=== PATIENT | female | born 1985 | race Caucasian/White ===

== ENCOUNTER → 2018-08-17 | Outpatient (CLI) | payer OTHER ==
[~2018-08-17] MED LIST: LIDOCAINE 1% MDV 20ML VIAL As Ordered
== END ==
LOC: M RADPRO 12:29
DX: R22.41 Localized swelling, mass and lump, right lower limb (principal); Z79.899 Other long term (current) drug therapy
CPT/HCPCS: 20610

== ENCOUNTER 2018-08-18 08:25 | Emergency (ER) | payer OTHER ==
[2018-08-18] MEDS: ANEXSIA, NORCO 7.5MG/325MG TABLET(HYDROCODONE/APAP) PO (09:42)
[2018-08-18] MEDS: METHOCARBAMOL 500 MG TAB PO (10:16)
[2018-08-18] MEDS: NAPROXEN 250 MG TAB PO (10:55)
== END 2018-08-18 12:00 | disposition home or self-care (01) ==
LOC: M ED 08:25
DX: M79.622 Pain in left upper arm (principal); M62.838 Other muscle spasm
CPT/HCPCS: 73030

== ENCOUNTER → 2019-06-22 | Outpatient (REF) | payer OTHER ==
[~2019-06-22] MED LIST changes: +LEVONOR/ETHI; -LIDOCAINE 1% MDV 20ML VIAL As Ordered; +NAPR-885 PO; +ROBA500T PO; +VOLT1GEL15 TOP
[2019-06-22 19:01] LABS: HEMATOCRIT 38.2 % (36.0-47.0); MEAN CORPUSCULAR HEMOGLOBIN 32.4 pg (27.0-33.0); MEAN CORPUSCULAR VOLUME 95.3 fl (80.0-96.0); PLATELET COUNT, AUTOMATED 223 10^3/uL (150-450); RED BLOOD COUNT 4.01 10^6/uL (4.00-5.40); WHITE BLOOD COUNT 11.4 10^3/uL (4.0-10.0)
[2019-06-22 21:07] LABS: HCG, SERUM QUANTITATIVE 86964 MIU/ML
[2019-06-24 10:46] LABS: RUBELLA IgG QUALITATIVE IMMUNE (IMMUNE)
[2019-06-24 11:14] LABS: HEPATITIS C VIRUS ABY INDEX < 0.0 INDEX (<0.8); HIV 1&2 SCREEN CENTAUR NEGATIVE (NEGATIVE)
== END ==
LOC: M LAB REF 16:24
PROVIDERS: ATTEND Obstetrics & Gynecology
DX: O36.80X0 Pregnancy with inconclusive fetal viability, not applicable or unspecified (principal); Z32.01 Encounter for pregnancy test, result positive

== ENCOUNTER → 2019-07-21 | Outpatient (REF) | payer OTHER | LOC: M LAB REF 12:32 | PROVIDERS: ATTEND Obstetrics & Gynecology | DX: Z34.02 Encounter for supervision of normal first pregnancy, second trimester (principal) ==

== ENCOUNTER → 2019-07-28 | Outpatient (CLI) | payer OTHER ==
--- NOTE | 2019-07-28 12:24 | REP ---
OB ULTRASOUND: Real-time sonographic evaluation of the gravid uterus performed utilizing transabdominal technique. There is a single living intrauterine gestation with an estimated gestational age 14 weeks 0 days, EDC 01/26/2020. BPD 24 mm = 14 weeks 0 days HC 95 mm = 14 weeks 3 days AC 73 mm = 13 weeks 6 days FL 13 mm = 14 weeks 0 days HC/AC ratio 1.30 at the upper limits of normal range 1.1 to 1.30. heart rate 150 beats per minute. Placenta is anterior with no abruption. Amniotic fluid within normal limits. No maternal adnexa region abnormality is seen. Electronically Signed by Tevin Nassar MD 07/28/2019 01:37 P
== END ==
LOC: M RAD 10:50
PROVIDERS: ATTEND Physician Assistant
DX: Z3A.14 14 weeks gestation of pregnancy (principal); R10.9 Unspecified abdominal pain

== ENCOUNTER 2019-07-29 07:24 | Emergency (ER) | payer OTHER ==
[~2019-07-29] VITALS: Ht 152.4 cm; Wt 71.5 kg
[2019-07-29 08:05] LABS: BASO % 0.3 % (0.0-1.0); EOS # 0.2 10^3/uL (0.0-0.5); EOS % 1.8 % (0.0-3.0); HEMATOCRIT 35.9 % (36.0-47.0); HEMOGLOBIN 12.4 g/dl (12.0-15.5); LYMPH # 1.8 10^3/uL (1.5-5.0); LYMPH % 17.9 % (24.0-44.0); MEAN CORPUSCULAR HEMOGLOBIN 32.6 pg (27.0-33.0); MEAN CORPUSCULAR HGB CONC 34.5 g/dl (32.0-36.5); MEAN CORPUSCULAR VOLUME 94.5 fl (80.0-96.0); MONO # 0.8 10^3/uL (0.0-0.8); MONO % 7.6 % (0.0-5.0); NEUTROPHILS # 7.1 10^3/uL (1.5-8.5); NEUTROPHILS % 70.5 % (36.0-66.0); PLATELET COUNT, AUTOMATED 196 10^3/uL (150-450); WHITE BLOOD COUNT 10.1 10^3/uL (4.0-10.0)
[2019-07-29] MEDS ORDERED: RHOGAM 300 MCG (1500 IU) INJ (J2790) IM ONE (09:00)
[2019-07-29 09:53] VITALS: BP 121/66
--- NOTE | 2019-07-29 11:51 | REP ---
Obstetric ultrasound for vaginal bleeding and passing clot : The study is performed with transabdominal imaging: There is a single intrauterine gestation in a vertex presentation. The heart rate is 150 beats per minute. The placenta is anterior. There is no placenta previa or placental abruptio. The amniotic fluid volume subjectively is normal. The amniotic fluid index is 10.5. This is normal for gestational age. Gestational age based on the first ultrasound dated 07/28/2019 is 14 weeks 4 days/CODY 01/23/2020. Electronically Signed by Tevin Cooper MD 07/29/2019 11:42 A
== END 2019-07-29 10:03 | disposition home or self-care (01) ==
LOC: M ED 07:24
DX: O20.0 Threatened abortion (principal); O99.332 Smoking (tobacco) complicating pregnancy, second trimester; F17.210 Nicotine dependence, cigarettes, uncomplicated; Z3A.14 14 weeks gestation of pregnancy
CPT/HCPCS: 36415; 76815; 84702; 85025; 86850; 86900; 86901; 96372; 99283; J2790

== ENCOUNTER → 2019-09-08 | Outpatient (CLI) | payer OTHER ==
[2019-09-08 13:48] LABS: HEMOGLOBIN A1c 4.4 %
[2019-09-08 14:02] LABS: FREE T4 0.8 NG/DL (0.76-1.46); THYROID STIMULATING HORMONE 1.12 uIU/ML (0.358-3.740)
== END ==
LOC: M SMT 11:00
PROVIDERS: ATTEND Advanced Practice Midwife
DX: Z34.82 Encounter for supervision of other normal pregnancy, second trimester (principal); R63.5 Abnormal weight gain; Z3A.00 Weeks of gestation of pregnancy not specified

== ENCOUNTER → 2019-09-14 | Outpatient (CLI) | payer OTHER ==
--- NOTE | 2019-09-15 05:11 | REP ---
Clinical: Anatomical evaluation. Comparison: 07/29/2019 . Findings: Examination demonstrates a single live intrauterine in oblique (head towards maternal left) presentation. motion is identified by technologist. Placenta is noted anterior and grade zero without evidence for placenta previa or abruption. Amniotic fluid volume is normal. Cervix measures 4.9 cm in length and appears closed. Nuchal cord cannot be excluded. Gestational age by LMP 21 weeks 4 days with CODY 01/21/2020 . Gestational age by current measurements 20 weeks 3 days with CODY 01/29/2020 . FHR equals 141 beats per minute. BPD 4.8 cm 20 weeks 4 days HC 17.7 cm 20 weeks 1 day AC 16.2 cm 21 weeks 2 days FL 3.3 cm 20 weeks 2 days HL 3.0 cm 19 weeks 6 days HC/AC ratio 1.09 Estimated weight 376 grams ( 58th percentile). Anatomical assessment demonstrates normal structures including cranium, choroid plexus, cavum, ventricular outflow tracts, diaphragm, stomach, cord insertion/three-vessel cord, kidneys/bladder, spine, and extremities. Impression: 1. Single live intrauterine in oblique lie demonstrating appropriate interval growth. 2. Nuchal cord cannot be excluded. 3. Limited evaluation of the posterior fossa, facial features, lungs and heart. Remainder of the anatomical assessment is complete and normal. Electronically Signed by Abdirashid Jackson MD 09/15/2019 05:02 A
== END ==
LOC: M RAD 17:01
PROVIDERS: ATTEND Advanced Practice Midwife
DX: Z34.82 Encounter for supervision of other normal pregnancy, second trimester (principal); Z3A.20 20 weeks gestation of pregnancy

== ENCOUNTER → 2019-10-17 | Outpatient (CLI) | payer OTHER ==
--- NOTE | 2019-10-17 11:03 | REP ---
OBSTETRIC SONOGRAPHY: HISTORY: Supervision of followup anatomy. Comparison study September 14, 2019. FINDINGS: Transabdominal scanning demonstrates a viable single intrauterine gestation in a breech lie. motion is observed and heart rate is recorded at 156 beats per minute. An anterior right lateral placenta is seen grade 1 without evidence of previa. Closed cervical length measures 4.8 cm, viewed transabdominally. Amniotic fluid is subjectively normal. There has been appropriate interval growth. No extrauterine abnormalities observed. The following anatomic structures are identified today and felt to be unremarkable: Cerebellum and posterior fossa, face and profile, lungs, four-chamber heart. No anomaly is seen. Biometry Chart: BPD 6.4 cm = 6.4 cm 25 weeks 5 days HC 23.4 cm = 25 weeks 3 days AC 20.9 cm = 25 weeks 3 days FL 4.5 cm = 24 weeks 5 days HL 3.9 cm = 23 weeks 6 days HC/AC ratio normal 1.12. Cephalic index normal 0.75 Estimated weight 783 grams, 1 pound 11 ounces, 16th percentile for 26 weeks 2 days. IMPRESSION: Viable single intrauterine gestation of 25 weeks 0 days by today's composite sonographic criteria. Expected gestational age estimate based on prior sonography is 25 weeks 4 days. CODY by prior sonography January 26, 2020. In conjunction with the prior sonogram, anatomic survey is felt to be complete. Electronically Signed by Adarsh Vázquez MD 10/17/2019 11:40 A
== END ==
LOC: M RAD 09:19
PROVIDERS: ATTEND Advanced Practice Midwife
DX: Z34.83 Encounter for supervision of other normal pregnancy, third trimester (principal); Z3A.25 25 weeks gestation of pregnancy

== ENCOUNTER → 2019-11-07 | Outpatient (CLI) | payer OTHER | LOC: M PLALAB 11:46 | PROVIDERS: ATTEND Advanced Practice Midwife | DX: Z34.82 Encounter for supervision of other normal pregnancy, second trimester (principal); Z3A.24 24 weeks gestation of pregnancy ==